=== PATIENT | female | born 1945 | race Caucasian/White ===

== ENCOUNTER → 2016-10-16 | Outpatient (CLI) | payer OTHER ==
[~2016-10-16] MED LIST: ASPEC81 PO; CLR10 PO; EFFSR150 PO; ESTER-C PO; HYOS1TAB PO; LEVO75TA5 PO; MULT-506 PO; OMEP40CA PO; OXYC-57 PO; PRAV20TA PO
[2016-10-17 06:29] LABS: ESTIMATED AVERAGE GLUCOSE 123 mg/dl; HA1C FLAG Normal (Normal)
== END | disposition home or self-care (01) ==
LOC: C.LABBFT 12:02
PROVIDERS: ATTEND Internal Medicine
DX: E11.9 Type 2 diabetes mellitus without complications (principal)

== ENCOUNTER → 2017-03-06 | Outpatient (CLI) | payer OTHER ==
[2017-03-06 12:32] LABS: BASO % 0.3 %; BASO ABS # 0.02 K/uL (0-0.2); COMPLETE YES; EOS % 2.6 %; HEMATOCRIT 38.3 % (37-47); IG% 0.3 %; LYMPH % 31.3 %; LYMPH ABS # 1.83 K/uL (1.2-3.4); MEAN CELL VOLUME 94.3 fL (80-100); MEAN CORPUSCULAR HEMOGLOBIN 31.3 pg (25-34); MEAN CORPUSCULAR HGB CONC 33.2 g/dl (32-36); MEAN PLATELET VOLUME 10.6 fL (7.4-10.4); MONO % 9.9 %; NEUT % 55.6 %; PLATELET COUNT 250 K/uL (130-400); RED BLOOD COUNT 4.06 M/uL (4.2-5.4); WHITE BLOOD COUNT 5.84 K/uL (4.8-10.8)
[2017-03-06 12:34] LABS: URINE APPEARANCE CLEAR (CLEAR); URINE BILIRUBIN NEG (NEG); URINE COLOR YELLOW; URINE EPITHELIAL CELL AUTO >30 /lpf (0-5); URINE NITRITE NEG (NEG); UROBILINOGEN NEG (NEG); ZZUR CULT IF INDIC CLEAN CATCH NO
[2017-03-06 12:41] LABS: MANUAL MICROSCOPIC REQUIRED? NO; REVIEW REQ? NO
[2017-03-06 13:05] LABS: ESTIMATED AVERAGE GLUCOSE 131 mg/dl; HA1C FLAG Normal (Normal)
[2017-03-06 13:09] LABS: ALT/SGPT 18 U/L (12-78); BLOOD UREA NITROGEN 11 mg/dl (7-18); BUN/CREATININE RATIO 13.8 (10-20); CALCIUM 9.1 mg/dl (8.5-10.1); CARBON DIOXIDE 26 mmol/L (21-32); CHLORIDE 106 mmol/L (98-107); CHOLESTEROL 165 mg/dl (0-200); CREATININE 0.81 mg/dl (0.60-1.20); GLUCOSE 100 mg/dl (70-99); POTASSIUM 4.3 mmol/L (3.5-5.1); SODIUM 140 mmol/L (136-145); TRIGLYCERIDES 84 mg/dl (0-150); VERY LOW DENSITY LIPOPROT CALC 17 mg/dl
[2017-03-06 13:20] LABS: RATIO 8.9 mcg/mg (0-30.0)
[2017-03-06 13:20] LABS: ALB/GLOB RATIO 1.1 (0.9-2); ALKALINE PHOSPHATASE 65 U/L (45-117); AST/SGOT 11 U/L (15-37); CHOLESTEROL/HDL RATIO 2.4; HDL CHOLESTEROL 69 mg/dl; LDL CHOLESTEROL CALCULATED 79 mg/dl; THYROID STIMULATING HORMONE 0.184 uIu/ml (0.300-4.500)
== END | disposition home or self-care (01) ==
LOC: C.LABBFT 11:03
PROVIDERS: ATTEND Internal Medicine
DX: E11.9 Type 2 diabetes mellitus without complications (principal); E78.00 Pure hypercholesterolemia, unspecified; E03.9 Hypothyroidism, unspecified; M85.80 Other specified disorders of bone density and structure, unspecified site

== ENCOUNTER → 2017-04-30 | Outpatient (CLI) | payer OTHER ==
[2017-04-30 18:05] LABS: THYROID STIMULATING HORMONE 0.148 uIu/ml (0.300-4.500)
== END | disposition home or self-care (01) ==
LOC: C.LABBFT 14:17
PROVIDERS: ATTEND Internal Medicine
DX: E03.9 Hypothyroidism, unspecified (principal)

== ENCOUNTER → 2017-06-18 | Outpatient (CLI) | payer OTHER ==
--- NOTE | 2017-06-18 14:35 | MAMMOGRAPHY REPORT ---
BILATERAL DIGITAL SCREENING MAMMOGRAM WITH CAD: 06/18/2017 CLINICAL HISTORY: Routine screening. Patient has no complaints. TECHNIQUE: Current study was also evaluated with a Computer Aided Detection (CAD) system. Bilateral CC and MLO views were obtained. COMPARISON: Comparison is made to exams dated: 06/16/2016 mammogram, 06/11/2015 mammogram, 06/08/2014 mammogram, 06/06/2013 mammogram, 06/04/2012 mammogram, and 05/30/2011 mammogram - [facility]. BREAST COMPOSITION: The tissue of both breasts is heterogeneously dense, which may obscure small mas ses. FINDINGS: No suspicious masses, calcifications, or areas of architectural distortion are noted in ei ther breast. There has been no significant interval change compared to prior exams. Scattered bilater al benign-appearing calcifications are not significantly changed. IMPRESSION: ACR BI-RADS CATEGORY 2: BENIGN There is no mammographic evidence of malignancy. A 1 year screening mammogram is recommended. The pa tient will receive written notification of the results. Approximately 10% of breast cancers are not detected with mammography. A negative mammographic report should not delay biopsy if a clinically suggestive mass is present. Trinity Morales M.D. /:06/18/2017 12:26:13 Screen Cutter And Trimmer: Roya Gordillo, [facility] letter sent: Normal 1/2 BI-RADS Code: ACR BI-RADS Category 2: Benign
== END | disposition home or self-care (01) ==
LOC: C.MAMM 10:43
PROVIDERS: ATTEND Obstetrics & Gynecology
DX: Z12.31 Encounter for screening mammogram for malignant neoplasm of breast (principal)

== ENCOUNTER → 2017-07-16 | Outpatient (CLI) | payer OTHER ==
[2017-07-16 17:55] LABS: URINE APPEARANCE CLEAR (CLEAR); URINE BILIRUBIN NEG (NEG); URINE COLOR YELLOW; URINE NITRITE NEG (NEG); URINE PH 7.5 (4.5-7.5); URINE SPECIFIC GRAVITY 1.018 (1.000-1.030); UROBILINOGEN NEG (NEG); ZZUR CULT IF INDIC CLEAN CATCH NO
[2017-07-16 17:58] LABS: MANUAL MICROSCOPIC REQUIRED? NO; REVIEW REQ? NO
[2017-07-16 18:32] LABS: ALT/SGPT 23 U/L (12-78); AST/SGOT 14 U/L (15-37); BLOOD UREA NITROGEN 15 mg/dl (7-18); BUN/CREATININE RATIO 19.5 (10-20); CALCIUM 9.3 mg/dl (8.5-10.1); CARBON DIOXIDE 26 mmol/L (21-32); CHLORIDE 104 mmol/L (98-107); CREATININE 0.75 mg/dl (0.60-1.20); GLUCOSE 93 mg/dl (70-99); POTASSIUM 3.8 mmol/L (3.5-5.1); SODIUM 139 mmol/L (136-145)
[2017-07-16 18:41] LABS: ALB/GLOB RATIO 1.1 (0.9-2); ALKALINE PHOSPHATASE 82 U/L (45-117); CHOLESTEROL 137 mg/dl (0-200); CHOLESTEROL/HDL RATIO 2.1; HDL CHOLESTEROL 66 mg/dl; LDL CHOLESTEROL CALCULATED 58 mg/dl; TRIGLYCERIDES 67 mg/dl (0-150); VERY LOW DENSITY LIPOPROT CALC 13 mg/dl
[2017-07-17 05:43] LABS: ESTIMATED AVERAGE GLUCOSE 128 mg/dl; HA1C FLAG Normal (Normal)
== END | disposition home or self-care (01) ==
LOC: C.LABBFT 12:36
PROVIDERS: ATTEND Internal Medicine
DX: E03.9 Hypothyroidism, unspecified (principal); E78.00 Pure hypercholesterolemia, unspecified; E11.9 Type 2 diabetes mellitus without complications; R39.9 Unspecified symptoms and signs involving the genitourinary system

== ENCOUNTER → 2017-12-16 | Outpatient (CLI) | payer OTHER ==
--- NOTE | 2017-12-16 15:14 | MAMMOGRAPHY REPORT ---
UNILATERAL LEFT DIGITAL DIAGNOSTIC MAMMOGRAM TOMOSYNTHESIS WITH CAD AND TARGETED LEFT ULTRASOUND: 11/29 CLINICAL HISTORY: The patient reports a palpable left breast lump with associated pain for a few beti hs. TECHNIQUE: Breast tomosynthesis in addition to standard 2D mammography was performed. Current study was also evaluated with a Computer Aided Detection (CAD) system. Left CC and MLO 2D and tomosynthesi s images were obtained. COMPARISON: Comparison is made to exams dated: 06/18/2017 mammogram, 06/11/2015 mammogram, 6 mammogram, 06/08/2014 mammogram, 06/06/2013 mammogram, and 06/04/2012 mammogram - [facility]. BREAST COMPOSITION: The tissue of the left breast is heterogeneously dense, which may obscure small masses. FINDINGS: A triangle marker sesay the site of the palpable lump in the left upper outer anterior anai st. There are no suspicious masses or other suspicious mammographic abnormalities noted in this glen on. The remainder of the left breast is stable compared to prior exams, without suspicious masses, c alcifications, or areas of architectural distortion noted. Scattered benign-appearing calcifications are not significantly changed. Targeted ultrasound was performed of the area of the palpable lump pointed out by the patient in the left 1 to 2:00 periareolar region. Sonographically normal tissue is seen in this region, without abdirahman dence of a mass or other suspicious sonographic abnormality. IMPRESSION: ACR BI-RADS CATEGORY 2: BENIGN, TARGETED ULTRASOUND ACR BI-RADS CATEGORY 2: BENIGN No suspicious mammographic or sonographic abnormality at the site of the palpable left breast lump po inted out by the patient. There is no mammographic or targeted sonographic evidence of malignancy. Recommend clinical follow-up for the left breast lump, and recommend routine bilateral screening mamm ograms which are due May 2018. The patient has been verbally notified of the results. Approximately 10% of breast cancers are not detected with mammography. A negative mammographic report should not delay biopsy if a clinically suggestive mass is present. Trinity Morales M.D. ah/:12/16/2017 13:52:31 Track Laying Supervisor: Roya BRAND(R)(M), [facility] letter sent: Normal 1/2 BI-RADS Code: ACR BI-RADS Category 2: Benign Ultrasound BI-RADS: ACR BI-RADS Category 2: Benign
== END | disposition home or self-care (01) ==
LOC: C.MAMM 13:23
PROVIDERS: ATTEND Obstetrics & Gynecology
DX: N63.20 Unspecified lump in the left breast, unspecified quadrant (principal)

== ENCOUNTER → 2018-03-23 | Outpatient (CLI) | payer OTHER | END | disposition home or self-care (01) | LOC: C.LABBFT 15:33 | PROVIDERS: ATTEND Internal Medicine | DX: E03.9 Hypothyroidism, unspecified (principal) ==

== ENCOUNTER 2024-01-18 12:22 | Observation (INO) ==
[2024-01-18 13:11] LABS: iSTAT Creatinine 0.8 mg/dl (0.6-1.3); iSTAT Hemoglobin 11.2 g/dl (12.0-16.0); iSTAT Ionized Calcium 1.25 mmol/l (1.12-1.32); iSTAT Potassium 4.2 mmol/L (3.3-5.0)
[2024-01-18] MEDS: OPTIRAY 320 100ml IV ONE (13:11)
--- NOTE | 2024-01-18 13:52 | CT Scan Report ---
CT OF THE CHEST WITH IV CONTRAST CLINICAL HISTORY: left rib pain, fall COMPARISON STUDY: Chest radiograph February 25, 2023. TECHNIQUE: Following IV administration of 94 mL of Optiray, helical axial images of the chest were o btained. Sagittal and coronal reconstructions were viewed as well as maximal intensity projections o n an independent 3-D workstation. Automated exposure control was utilized for the study. A dose low ering technique was utilized adhering to the principles of ALARA. CT DOSE: 1148.11 mGy.cm FINDINGS: There are subtle nondisplaced fractures of the anterior left sixth through ninth ribs. The se are age indeterminate. No pneumothorax or pleural effusion is present. There is no pulmonary contu nayla. There is a segmental pulmonary embolus within the anterior segment of the right upper lobe on i mage 90 of 205. No additional pulmonary emboli are identified. There is no evidence for traumatic inj ury to the thoracic aorta. Size of the heart is normal. There is no pericardial effusion. There is no thoracic lymphadenopathy. No acute thoracic spine fractures are present. Abdomen and pelvis CT will be reported separately. IMPRESSION: 1. Age indeterminate nondisplaced fractures of the anterior left sixth through ninth ribs. No pneumot horax. 2. Segmental pulmonary embolus within the anterior segment of the right upper lobe. No additional pul monary emboli identified. ACT 112: Negative or not required by law. Electronically signed by: Justin Villareal M.D. 01/18/2024 1:50 PM
--- NOTE | 2024-01-18 13:53 | CT Scan Report ---
ABDOMEN AND PELVIS CT WITH IV CONTRAST CT DOSE: HISTORY: luq pain, fall TECHNIQUE: Multiaxial CT images of the abdomen and pelvis were performed following the use of intrave nous contrast. A dose lowering technique was utilized adhering to the principles of ALARA. COMPARISON STUDY: Pelvis CT 02/25/2023. FINDINGS: The lung bases will be reported on the same day chest CT. No pneumoperitoneum. No pneumatos is. Mild irregularity of the left anterior sixth through ninth ribs consistent with age indeterminate fractures. These are nondisplaced. The liver, gallbladder, pancreas, spleen, and adrenal glands are unremarkable. No hydronephrosis. A subcentimeter hypodense lesion within the left kidney is technical ly too small to characterize but favors a cyst. The right kidney enhances normally. Calcified plaque within the normal caliber abdominal aorta. No retroperitoneal hematoma or lymphadenopathy. No pelvic lymphadenopathy or pelvic free fluid. The bladder is not well-distended but appears unremarkable. The uterus and bilateral adnexa are within normal limits. Tiny fat-containing bilateral inguinal hernias . The right inguinal hernia contains a knuckle small bowel. No bowel wall thickening or obstruction. Moderate fecal retention. Evidence for prior right hemicolectomy. IMPRESSION: 1. Age-indeterminate nondisplaced left anterior sixth through ninth rib fractures. 2. No bowel wall thickening or obstruction. 3. Postoperative changes consistent with a prior right hemicolectomy. 4. The lung bases will be reported on the same day chest CT. 5. Additional findings as described above. ACT 112: Negative or not required by law. Electronically signed by: Marky Tong M.D. 01/18/2024 1:52 PM
[2024-01-18 14:43] LABS: Basophils # (auto) 0.02 K/uL (0.00-0.20); Basophils % (auto) 0.3 %; Eosinophils # (auto) 0.13 K/uL (0.00-0.50); Eosinophils % (auto) 2.2 %; Hematocrit (blood only) 35.7 % (37.0-47.0); Hemoglobin 11.6 g/dl (12.0-16.0); Immature Granulocytes # (auto) 0.02 K/uL (0.01-0.20); Immature Granulocytes % (auto) 0.3 %; Lymphocytes # (auto) 1.72 K/uL (1.20-3.40); Mean Corpuscular Hemoglobin 30.4 pg (25.0-34.0); Mean Corpuscular Hgb Conc 32.5 g/dL (32.0-36.0); Mean Corpuscular Volume 93.5 fL (80.0-100.0); Mean Platelet Volume 10.9 fL (9.4-12.4); Monocytes # (auto) 0.59 K/uL (0.11-0.59); Monocytes % (auto) 9.9 %; Neutrophils # (auto) 3.46 K/uL (1.40-6.50); Neutrophils % (auto) 58.3 %; Platelet Count 268 K/uL (130-400); RDW Coefficient of Variation 15.8 % (11.5-14.5); RDW Standard Deviation 53.7 fL (36.4-46.3); Red Blood Count 3.82 M/uL (4.20-5.40); White Blood Count 5.94 K/ul (4.8-10.8)
[2024-01-18 14:45] LABS: Alanine Aminotransferase 13 U/L (7-52); Albumin Globulin Ratio 1.5 (0.9-2); Albumin Level 4.1 gm/dl (3.4-5.0); Alkaline Phosphatase 58 U/L (34-104); Anion Gap 7 (3-11); Aspartate Aminotransferase 12 U/L (13-39); BUN Creatinine Ratio 22.1 (10-20); Bilirubin,Total 0.5 mg/dl (0.2-1.0); Blood Urea Nitrogen 19 mg/dl (6-23); Calcium 9.8 mg/dl (8.6-10.3); Carbon Dioxide 27 mmol/L (21-32); Chloride 106 mmol/L (98-107); Creatinine Clr Calc Pharmacy 47.7 ml/min; Est GFR (African American) 74.5 ml/min; Est GFR (Non-African American) 64.3 ml/min; Globulin 2.8 gm/dl (2.5-4.0); Glucose 94 mg/dl (70-99(Fasting)); Potassium 4.2 mmol/L (3.5-5.1); Sodium 140 mmol/L (136-145); Total Protein 6.9 gm/dl (6.0-8.3)
[2024-01-18 14:52] LABS: Troponin I High Sensitivity < 2.3 pg/ml (0-14)
--- NOTE | 2024-01-18 15:01 | Emergency Department Note ---
ED Provider Note History of Present Illness Chief Complaint: Fall Stated Complaint: FALL SIDE BY RIBS Time Seen by Provider: 01/18/24 12:34 Source: patient Mode of arrival: ambulatory Limitations: no limitations This patient is a 78-year-old female who presents to the emergency department for evaluation of a fall and left-sided rib pain. Patient reports that she slipped on her carpet yesterday and fell, striking the left side ribs on an end table. She denies striking her head. She denies any other injuries. She reports pain in the left ribs especially with cough or deep breath. Denies difficulty breathing. She has been hugging a pillow to her ribs which helps. She does not take any anticoagulants. Home Medications Medication Instructions Recorded Confirmed Type loratadine 10 mg tablet 10 mg PO QAM 03/11/19 01/18/24 History famotidine 20 mg tablet 20 mg PO QAM 06/13/20 01/18/24 History wheat dextrin 3 gram/3.5 gram oral 1 packet PO BID 10/23/20 01/18/24 History powder packet cholecalciferol (vitamin D3) 50 50 mcg PO DAILY #30 caps 12/16/22 01/18/24 Rx mcg (2,000 unit) capsule mecobalamin (vitamin B12) 1,000 1,000 mcg PO DAILY #30 tabs 12/16/22 01/18/24 Rx mcg chewable tablet alendronate 35 mg tablet 35 mg PO WK #12 tabs 06/18/23 01/18/24 Rx levothyroxine 50 mcg tablet 50 mcg PO DAILY #90 tabs 09/29/23 01/18/24 Rx magnesium 250 mg tablet 250 mg PO DAILY 09/29/23 01/18/24 History venlafaxine 225 mg tablet,extended 225 mg PO DAILY #30 tabs 10/20/23 01/18/24 Rx release 24 hr metoprolol succinate 50 mg 50 mg PO DAILY #30 tabs 10/26/23 01/18/24 Rx tablet,extended release 24 hr metformin 500 mg tablet,extended 500 mg PO BID #180 tabs 11/17/23 01/18/24 Rx release 24 hr atorvastatin 40 mg tablet 40 mg PO HS #90 tabs 11/30/23 01/18/24 Rx Allergies Allergy/AdvReac Type Severity Reaction Status Date / Time SEASONAL Allergy Mild Uncoded 11/30/23 13:21 Past Med/Surg History Problem List (Updated 01/18/24 @ 20:24 by Jacquelyn Giang PA-C) Multiple fractures of ribs (Acute) Pulmonary embolism (Acute) Multiple rib fractures Pulmonary emboli SVT (supraventricular tachycardia) Sensorineural hearing loss (SNHL) of both ears HTN (hypertension) Encounter for interrogation of cardiac recorder Balance disorder Memory changes H/O traumatic brain injury Coronary artery calcification seen on CAT scan Syncope Decreased hearing Post concussion syndrome History of colon polyps Urinary incontinence (Acute) Tubulovillous adenoma of colon (Acute) Tubular adenoma of colon (Acute) Stuttering (Acute) Plantar fasciitis (Acute) Osteopenia (Chronic) Mitral valve prolapse syndrome (Acute) Microscopic hematuria (Acute) Irritable bowel syndrome (Chronic) Hypothyroidism (Chronic) Hypercholesterolemia (Chronic) Gastroesophageal reflux disease (Chronic) Diabetes mellitus type II, controlled (Chronic) NIDDM Depression (Acute) Anxiety (Chronic) Allergic rhinitis (Acute) Medical History Osteoarthritis Encounter for annual routine gynecological examination Lyme disease 3 yrs ago History of burning on urination Disorder of bone Anserine bursitis Surgical History History of colonoscopy History of tooth extraction History of appendectomy History of cataract surgery bilat History of tubal ligation History of breast biopsy left History of partial colectomy Family History Mother Breast cancer Skin cancer Pancreatic neoplasm Father Lung cancer Myocardial infarction Brother Myocardial infarction Asbestosis Esophageal cancer Sister Coronary heart disease Congenital heart disease Breast cancer Alzheimer disease Brother Intracranial hemorrhage Heart disease Denies family history of Ovarian cancer Prostate cancer Colorectal cancer Social History Smoking Status: Never smoker Second Hand Exposure: No; Do You Dip or Chew Tobacco: No; Hx Alcohol Use: Yes Alcohol type: wine Hx Substance Use: No Preferred Language: Serbian Communication Ability: Effective Visual Impairment: No Limitations Hearing Ability: Normal Electrical Fitter Required: No Beliefs That Will Affect Care: None marital status: Current Living Situation: Spouse current occupational status: retired Feels Safe at Home: Yes Safety Concerns: Feels Safe At This Time Childhood Exposure to Second-Hand Smoke: Yes Diet: regular caffeine: No Dental Care, Regularly: Yes Physical Activity Frequency: 3-4 Times per Week Seatbelt Use: always Sunscreen Use: Yes Assistive Devices: Cane, Denture - Upper, Denture - Lower and Glasses Physical Exam Vital Signs Vital Signs - 24 hr 01/18/24 12:26 Temperature 36.3 C L Temperature Source Temporal Artery Scan Pulse Rate 77 Pulse Rhythm Regular Pulse Strength Normal Respiratory Rate 16 Respiratory Effort / Characteristics Non-Labored Respiratory Depth Normal Respiratory Pattern Regular Blood Pressure 128/78 Blood Pressure Mean 94 Blood Pressure Position Sitting Pulse Oximetry 96 Oxygen Delivery Method Room Air Sepsis Recent Fever Within 48 Hours No Sepsis New/Unexplained Change in Mental Status N/A Sepsis Action Taken by Nursing No Action Required VITALS: Vitals are noted on the nurse's note and reviewed by myself. GENERAL: This is a 78-year-old female, in no acute distress, nondiaphoretic, well-developed well-nourished. SKIN: Small area of ecchymosis to the left anterior ribs. HEAD: Normocephalic atraumatic. EYES: Pupils equal round and reactive to light and accommodation. HEART: Regular rate and rhythm without murmurs gallops or rubs. LUNGS: Clear to auscultation bilaterally without wheezes, rales or rhonchi. No retractions or accessory muscle use. ABDOMEN: Positive bowel sounds x 4. Soft, mild tenderness in the left upper quadrant. NEURO: Patient was alert and oriented to person place and time. Course Administered Medications Acetaminophen (Acetaminophen 500 Mg Tab) 1,000 mg PO TID [facility] Stop: 02/17/24 16:34 Last Admin: 01/18/24 17:43 Dose: 1,000 mg Documented By: RON Heparin Sodium/Dextrose (Heparin Sodium/Dextrose) 25,000 units in 500 mls @ 20 mls/hr IV .Q24H [facility]; Protocol Stop: 02/17/24 16:44 Last Titration: 01/18/24 18:50 Dose: 1,000 units/hr, 20 mls/hr Documented By: RAE Co-signed By: RON Admin: 01/18/24 17:43 Dose: 1,000 units/hr, 20 mls/hr Documented By: RON Co-signed By: ALTAF Discontinued Medications Heparin Sodium (Porcine) (Heparin Sod (Porcine) 1000 Unit/Ml) 5,000 units IV NOW ONE Stop: 01/18/24 16:35 Last Admin: 01/18/24 17:43 Dose: 5,000 units Documented By: RON Co-signed By: ALTAF Ioversol (Optiray 320 100ml) 94 ml IV ONCE ONE Stop: 01/18/24 13:11 Last Admin: 01/18/24 13:11 Dose: 94 ml Documented By: DAMIEN Medical Decision Making Differential Diagnosis Differential diagnosis includes rib fracture, contusion, hemothorax, pneumothorax, intra-abdominal injury, among others. Laboratory Data Attestation: I reviewed the patient's lab results. 01/18/24 12:54 01/18/24 12:54 Lab Results 01/18/24 01/18/24 Range/Units 12:54 12:59 WBC 5.94 (4.8-10.8) K/ul RBC 3.82 L (4.20-5.40) M/uL Hgb 11.6 L (12.0-16.0) g/dl POC Hgb 11.2 L (12.0-16.0) g/dl Hct 35.7 L (37.0-47.0) % POC Hct 33 L (37-47) % MCV 93.5 (80.0-100.0) fL MCH 30.4 (25.0-34.0) pg MCHC 32.5 (32.0-36.0) g/dL RDW Std Deviation 53.7 H (36.4-46.3) fL RDW Coeff of Patricio 15.8 H (11.5-14.5) % Plt Count 268 (130-400) K/uL MPV 10.9 (9.4-12.4) fL Immature Gran % (Auto) 0.3 % Neut % (Auto) 58.3 % Lymph % (Auto) 29.0 % Clay % (Auto) 9.9 % Eos % (Auto) 2.2 % Baso % (Auto) 0.3 % Neut # (Auto) 3.46 (1.40-6.50) K/uL Lymph # (Auto) 1.72 (1.20-3.40) K/uL Clay # (Auto) 0.59 (0.11-0.59) K/uL Eos # (Auto) 0.13 (0.00-0.50) K/uL Baso # (Auto) 0.02 (0.00-0.20) K/uL Immature Gran # (Auto) 0.02 (0.01-0.20) K/uL PT 10.3 (9.0-12.0) Seconds INR 0.9 (0.9-1.1) APTT 24 (21-31) Seconds PTT Ratio 0.9 POC Sodium 141 (135-144) mmol/L Sodium 140 (136-145) mmol/L POC Potassium 4.2 (3.3-5.0) mmol/L Potassium 4.2 (3.5-5.1) mmol/L POC Chloride 104 (101-112) mmol/L Chloride 106 (98-107) mmol/L Carbon Dioxide 27 (21-32) mmol/L POC Total CO2 25 (24-31) mmol/L Anion Gap 7 (3-11) POC Anion Gap 17.0 (16-25) mmol/L POC BUN 19 H (7-18) mg/dl BUN 19 (6-23) mg/dl Creatinine 0.86 (0.6-1.2) mg/dl POC Creatinine 0.8 (0.6-1.3) mg/dl Est Cr Clr Drug Dosing 47.7 ml/min Est GFR ( Amer) 74.5 ml/min Est GFR (Non-Af Amer) 64.3 ml/min BUN/Creatinine Ratio 22.1 H (10-20) Glucose 94 (70-99(Fasting)) mg/dl POC Glucose (other) 96 (70-99) mg/dl Calcium 9.8 (8.6-10.3) mg/dl POC Ioniz Calcium Faiza 1.25 (1.12-1.32) mmol/l Total Bilirubin 0.5 (0.2-1.0) mg/dl AST 12 L (13-39) U/L ALT 13 (7-52) U/L Alkaline Phosphatase 58 (34-104) U/L Troponin I High Sens < 2.3 (0-14) pg/ml Total Protein 6.9 (6.0-8.3) gm/dl Albumin 4.1 (3.4-5.0) gm/dl Globulin 2.8 (2.5-4.0) gm/dl Albumin/Globulin Ratio 1.5 (0.9-2) Imaging Data Attestation: I personally reviewed and interpreted this imaging study as follows: Radiologist's Impression: Abdomen/Pelvis CT 01/18/24 12:[address] WITH IV CONTRAST CT DOSE: HISTORY: luq pain, fall TECHNIQUE: Multiaxial CT images of the abdomen and pelvis were performed following the use of intravenous contrast. A dose lowering technique was utilized adhering to the principles of ALARA. COMPARISON STUDY: Pelvis CT 02/25/2023. FINDINGS: The lung bases will be reported on the same day chest CT. No pneumoperitoneum. No pneumatosis. Mild irregularity of the left anterior sixth through ninth ribs consistent with age indeterminate fractures. These are nondisplaced. The liver, gallbladder, pancreas, spleen, and adrenal glands are unremarkable. No hydronephrosis. A subcentimeter hypodense lesion within the left kidney is technically too small to characterize but favors a cyst. The right kidney enhances normally. Calcified plaque within the normal caliber abdominal aorta. No retroperitoneal hematoma or lymphadenopathy. No pelvic lymphadenopathy or pelvic free fluid. The bladder is not well-distended but appears unremarkable. The uterus and bilateral adnexa are within normal limits. Tiny fat-containing bilateral inguinal hernias. The right inguinal hernia contains a knuckle small bowel. No bowel wall thickening or obstruction. Moderate fecal retention. Evidence for prior right hemicolectomy. IMPRESSION: 1. Age-indeterminate nondisplaced left anterior sixth through ninth rib fractures. 2. No bowel wall thickening or obstruction. 3. Postoperative changes consistent with a prior right hemicolectomy. 4. The lung bases will be reported on the same day chest CT. 5. Additional findings as described above. ACT 112: Negative or not required by law. Electronically signed by: Marky Tong M.D. 01/18/2024 1:[address] 01/18/24 12:45 CT OF THE CHEST WITH IV CONTRAST CLINICAL HISTORY: left rib pain, fall COMPARISON STUDY: Chest radiograph February 25, 2023. TECHNIQUE: Following IV administration of 94 mL of Optiray, helical axial images of the chest were obtained. Sagittal and coronal reconstructions were viewed as well as maximal intensity projections on an independent 3-D workstation. Automated exposure control was utilized for the study. A dose lowering technique was utilized adhering to the principles of ALARA. CT DOSE: 1148.11 mGy.cm FINDINGS: There are subtle nondisplaced fractures of the anterior left sixth through ninth ribs. These are age indeterminate. No pneumothorax or pleural effusion is present. There is no pulmonary contusion. There is a segmental pulmonary embolus within the anterior segment of the right upper lobe on image 90 of 205. No additional pulmonary emboli are identified. There is no evidence for traumatic injury to the thoracic aorta. Size of the heart is normal. There is no pericardial effusion. There is no thoracic lymphadenopathy. No acute thoracic spine fractures are present. Abdomen and pelvis CT will be reported separately. IMPRESSION: 1. Age indeterminate nondisplaced fractures of the anterior left sixth through ninth ribs. No pneumothorax. 2. Segmental pulmonary embolus within the anterior segment of the right upper lobe. No additional pulmonary emboli identified. ACT 112: Negative or not required by law. Electronically signed by: Justin Villareal M.D. 01/18/2024 1:50 PM Venous Doppler Study 01/18/24 14:49 BILATERAL LOWER EXTREMITY VENOUS DOPPLER CLINICAL HISTORY: PE ?DVT COMPARISON STUDY: No previous studies for comparison. TECHNIQUE: Sonography of the deep venous system of the bilateral lower extremities was performed. Compression and augmentation were evaluated. FINDINGS: The bilateral common femoral, superficial femoral and popliteal veins were compressible. Augmentation was normal. Flow was shown within the deep calf vessels. IMPRESSION: No evidence of deep venous thrombus within the bilateral lower extremities. ACT 112: Negative or not required by law. Electronically signed by: Justin Villareal M.D. 01/18/2024 3:58 PM MDM Narrative This patient is a 78-year-old female who presents to the emergency department for evaluation of an injury to her left ribs. She does have some tenderness to palpation of the upper abdomen, therefore CT of the chest and abdomen/pelvis were performed. CTs revealed for rib fractures as well as an incidental PE. Patient has no history of PE, not currently on anticoagulants. She will need started on anticoagulants, however given this recent trauma I feel this would be best done under observation. Case was discussed with the [facility] service, who agreed to evaluate patient for further care. Impression Pulmonary embolism, Multiple fractures of ribs Discharge Plan Visit Data Chief Complaint: Fall Stated Complaint: FALL SIDE BY RIBS ED Provider: Ahsan Renteria ED Midlevel Provider: Jacquelyn Giang Discharge Problem: Pulmonary embolism, Multiple fractures of ribs Patient Disposition: Admitted As Inpatient Discharge Instructions Interventions: ED Discharge Assessment Last Done: 01/18/24 15:40
[2024-01-18 15:06] LABS: INR 0.9 (0.9-1.1); Partial Thromboplastin Ratio 0.9; Partial Thromboplastin Time 24 Seconds (21-31); Prothrombin Time 10.3 Seconds (9.0-12.0)
--- NOTE | 2024-01-18 16:00 | Ultrasound Report ---
BILATERAL LOWER EXTREMITY VENOUS DOPPLER CLINICAL HISTORY: PE ?DVT COMPARISON STUDY: No previous studies for comparison. TECHNIQUE: Sonography of the deep venous system of the bilateral lower extremities was performed. Co mpression and augmentation were evaluated. FINDINGS: The bilateral common femoral, superficial femoral and popliteal veins were compressible. A ugmentation was normal. Flow was shown within the deep calf vessels. IMPRESSION: No evidence of deep venous thrombus within the bilateral lower extremities. ACT 112: Negative or not required by law. Electronically signed by: Justin Villareal M.D. 01/18/2024 3:58 PM
--- NOTE | 2024-01-18 16:18 | History & Physical Report ---
Date of Service January 18, 2024 Assessment & Plan (1) Pulmonary emboli: Plan: IV heparin in setting of trauma with rib fractures US venous doppler to ensure no DVT contributing as likely can just have 3 months of treatment if no extensive DVT (2) Multiple rib fractures: Plan: Incentive spirometer q1hwa Acetaminophen 1g PO TID Oxycodone 2.5-5mg PO q4h PRN for breakthrough pain (3) Diabetes mellitus type II, controlled: Plan: Hemoglobin A1C 6.2 in May, repeat with AM labs Hold metformin due to contrast Novolog: --Goal BSG Range: Low 110 mg/dL, High 140 mg/dL --Correction Factor: 50 mg/dL/unit No carb ratio --BSGs ACHS if eating, q6h if npo (4) Depression: Plan: Continue venlafaxine (5) Hypothyroidism: Plan: TSH 0.188 in August - reduced from 75 -> 50 mcg PO following this result, co ntinue 50 mcg Repeat 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 She slipped and fell onto her left side onto a table and has had left sided chest pain since. She notes having osteopenia but is on treatment for this. No other injuries and she did not hit her head. No chest pain, shortness of breath or dizziness prior to falling. She denies any other injuries following the fall other than her left sided chest pain. Pulmonary emboli was found on CT imaging. She denies a history of DVT or PE. No calf pain. No history of significant bleeds. Allergies Allergy/AdvReac Type Severity Reaction Status Date / Time SEASONAL Allergy Mild Uncoded 11/30/23 13:21 Home Medications Medication Instructions Recorded Confirmed Type loratadine 10 mg tablet 10 mg PO QAM 03/11/19 01/18/24 History famotidine 20 mg tablet 20 mg PO QAM 06/13/20 01/18/24 History wheat dextrin 3 gram/3.5 gram oral 1 packet PO BID 10/23/20 01/18/24 History powder packet cholecalciferol (vitamin D3) 50 50 mcg PO DAILY #30 caps 12/16/22 01/18/24 Rx mcg (2,000 unit) capsule mecobalamin (vitamin B12) 1,000 1,000 mcg PO DAILY #30 tabs 12/16/22 01/18/24 Rx mcg chewable tablet alendronate 35 mg tablet 35 mg PO WK #12 tabs 06/18/23 01/18/24 Rx levothyroxine 50 mcg tablet 50 mcg PO DAILY #90 tabs 09/29/23 01/18/24 Rx magnesium 250 mg tablet 250 mg PO DAILY 09/29/23 01/18/24 History venlafaxine 225 mg tablet,extended 225 mg PO DAILY #30 tabs 10/20/23 01/18/24 Rx release 24 hr metoprolol succinate 50 mg 50 mg PO DAILY #30 tabs 10/26/23 01/18/24 Rx tablet,extended release 24 hr metformin 500 mg tablet,extended 500 mg PO BID #180 tabs 11/17/23 01/18/24 Rx release 24 hr atorvastatin 40 mg tablet 40 mg PO HS #90 tabs 11/30/23 01/18/24 Rx Past Med/Surg History Problem List (Updated 01/18/24 @ 22:30 by Tiuts Major LPN) Multiple fractures of ribs (Acute ~01/18/24) Age indeterminate nondisplaced fractures of the anterior left sixth through ninth ribs from a fall Pulmonary embolism (Acute) Multiple rib fractures (~01/18/24) Age indeterminate nondisplaced fractures of the anterior left sixth through ninth ribs from a fall Pulmonary emboli SVT (supraventricular tachycardia) Sensorineural hearing loss (SNHL) of both ears HTN (hypertension) Encounter for interrogation of cardiac recorder Balance disorder Memory changes H/O traumatic brain injury Coronary artery calcification seen on CAT scan Syncope Decreased hearing Post concussion syndrome History of colon polyps Urinary incontinence (Acute) Tubulovillous adenoma of colon (Acute) Tubular adenoma of colon (Acute) Stuttering (Acute) Plantar fasciitis (Acute) Osteopenia (Chronic) Mitral valve prolapse syndrome (Acute) Microscopic hematuria (Acute) Irritable bowel syndrome (Chronic) Hypothyroidism (Chronic) Hypercholesterolemia (Chronic) Gastroesophageal reflux disease (Chronic) Diabetes mellitus type II, controlled (Chronic) NIDDM Depression (Acute) Anxiety (Chronic) Allergic rhinitis (Acute) Medical History Osteoarthritis Encounter for annual routine gynecological examination Lyme disease 3 yrs ago History of burning on urination Disorder of bone Anserine bursitis Surgical History History of colonoscopy History of tooth extraction History of appendectomy History of cataract surgery bilat History of tubal ligation History of breast biopsy left History of partial colectomy Family History Mother Breast cancer Skin cancer Pancreatic neoplasm Father Lung cancer Myocardial infarction Brother Myocardial infarction Asbestosis Esophageal cancer Sister Coronary heart disease Congenital heart disease Breast cancer Alzheimer disease Brother Intracranial hemorrhage Heart disease Denies family history of Ovarian cancer Prostate cancer Colorectal cancer Social History Smoking Status: Never smoker Second Hand Exposure: No; Do You Dip or Chew Tobacco: No; Hx Alcohol Use: Yes Alcohol type: wine Hx Substance Use: No Preferred Language: Kenyan Communication Ability: Effective Visual Impairment: No Limitations Hearing Ability: Normal 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 Beliefs That Will Affect Care: None marital status: Current Living Situation: Spouse current occupational status: retired Feels Safe at Home: Yes Safety Concerns: Feels Safe At This Time Childhood Exposure to Second-Hand Smoke: Yes Diet: regular caffeine: No Dental Care, Regularly: Yes Physical Activity Frequency: 3-4 Times per Week Seatbelt Use: always Sunscreen Use: Yes Assistive Devices: Cane, Denture - Upper, Denture - Lower and Glasses Review of Systems Review of Systems: All systems reviewed & are unremarkable except as noted in HPI & below Physical Exam Constitutional: WD/WN, vitals as above Eyes: PERRL, conjunctivae normal, anicteric sclerae Respiratory: normal respiratory effort, lungs clear to auscultation Cardiovascular: RRR, no murmur, no edema Chest (Breasts): Additional Comments: pain on palpation over left lower chest Gastrointestinal (Abdomen): normal bowel sounds, soft, nontender, no hepatosplenomegaly Musculoskeletal: no cyanosis or clubbing, extremities motor strength 5/5 Skin: no rashes, warm and dry Neurologic: moves all extremities and awake; not confused Psychiatric: A+Ox3, euthymic affect Results & Data Results & Data Vital Signs (Past 12 Hours) Vital Signs Temp Pulse Resp BP Pulse Ox O2 Del Method 01/18/24 15:40 36.4 C L 77 16 128/78 96 Room Air 01/18/24 12:26 36.3 C L 77 16 128/78 96 Room Air Laboratory Results Abnormal lab results 01/18/24 01/18/24 Range/Units 12:54 12:59 RBC 3.82 L (4.20-5.40) M/uL Hgb 11.6 L (12.0-16.0) g/dl POC Hgb 11.2 L (12.0-16.0) g/dl Hct 35.7 L (37.0-47.0) % POC Hct 33 L (37-47) % RDW Std Deviation 53.7 H (36.4-46.3) fL RDW Coeff of Patricio 15.8 H (11.5-14.5) % POC BUN 19 H (7-18) mg/dl BUN/Creatinine Ratio 22.1 H (10-20) AST 12 L (13-39) U/L Diagnostic Findings CT OF THE CHEST WITH IV CONTRAST CLINICAL HISTORY: left rib pain, fall COMPARISON STUDY: Chest radiograph February 25, 2023. TECHNIQUE: Following IV administration of 94 mL of Optiray, helical axial images of the chest were obtained. Sagittal and coronal reconstructions were viewed as well as maximal intensity projections on an independent 3-D workstation. Automated exposure control was utilized for the study. A dose lowering technique was utilized adhering to the principles of ALARA. CT DOSE: 1148.11 mGy.cm FINDINGS: There are subtle nondisplaced fractures of the anterior left sixth through ninth ribs. These are age indeterminate. No pneumothorax or pleural effusion is present. There is no pulmonary contusion. There is a segmental pulmonary embolus within the anterior segment of the right upper lobe on image 90 of 205. No additional pulmonary emboli are identified. There is no evidence for traumatic injury to the thoracic aorta. Size of the heart is normal. There is no pericardial effusion. There is no thoracic lymphadenopathy. No acute thoracic spine fractures are present. Abdomen and pelvis CT will be reported separately. IMPRESSION: 1. Age indeterminate nondisplaced fractures of the anterior left sixth through ninth ribs. No pneumothorax. 2. Segmental pulmonary embolus within the anterior segment of the right upper lobe. No additional pulmonary emboli identified. ABDOMEN AND PELVIS CT WITH IV CONTRAST CT DOSE: HISTORY: luq pain, fall TECHNIQUE: Multiaxial CT images of the abdomen and pelvis were performed following the use of intravenous contrast. A dose lowering technique was utilized adhering to the principles of ALARA. COMPARISON STUDY: Pelvis CT 02/25/2023. FINDINGS: The lung bases will be reported on the same day chest CT. No pneumoperitoneum. No pneumatosis. Mild irregularity of the left anterior sixth through ninth ribs consistent with age indeterminate fractures. These are nondisplaced. The liver, gallbladder, pancreas, spleen, and adrenal glands are unremarkable. No hydronephrosis. A subcentimeter hypodense lesion within the left kidney is technically too small to characterize but favors a cyst. The right kidney enhances normally. Calcified plaque within the normal caliber abdominal aorta. No retroperitoneal hematoma or lymphadenopathy. No pelvic lymphadenopathy or pelvic free fluid. The bladder is not well-distended but appears unremarkable. The uterus and bilateral adnexa are within normal limits. Tiny fat-containing bilateral inguinal hernias. The right inguinal hernia contains a knuckle small bowel. No bowel wall thickening or obstruction. Moderate fecal retention. Evidence for prior right hemicolectomy. IMPRESSION: 1. Age-indeterminate nondisplaced left anterior sixth through ninth rib fractures. 2. No bowel wall thickening or obstruction. 3. Postoperative changes consistent with a prior right hemicolectomy. 4. The lung bases will be reported on the same day chest CT. 5. Additional findings as described above. Medications Administered ER Medications Given: None ECG Rate (beats per minute): 73 Rhythm: normal sinus Findings: no acute ischemic change Comparison ECG Date: from (March 27, 2023) Change: no significant change Code Status & VTE Plan Code Status Full VTE Prophylaxis Plan VTE Prophylaxis will be ordered: Yes PG Care Time/CCT Total # of Minutes Spent Total Time Spent with Patient: Total time spent is greater than 50% in coordination of care (as documented) at patient's floor/unit and/or counseling patient: Coding Level of Care Code 62289 INT INP/OBS CARE 2/55MIN Diagnoses Pulmonary emboli I26.99 Multiple rib fractures S22.49XA Controlled type 2 diabetes mellitus without complication, without long-term current use of insulin E11.9 Diabetes mellitus complication status: without complication Diabetes mellitus shelter insulin use: without shelter use Depression, unspecified depression type F32.A Depression Type: unspecified Acquired hypothyroidism E03.9 Hypothyroidism type: acquired (3) Diabetes mellitus type II, controlled Diabetes mellitus complication status: without complication Diabetes mellitus terminal make up operator insulin use: without terminal make up operator use Qualified Code(s): E11.9 - Type 2 diabetes mellitus without complications (4) Depression Depression Type: unspecified Qualified Code(s): F32.A - Depression, unspecified (5) Hypothyroidism Hypothyroidism type: acquired Qualified Code(s): E03.9 - Hypothyroidism, unspecified
[2024-01-18] MEDS ORDERED: Heparin IV Adult Wt-Based Standard w/ INITIAL Bolus Protocol IV SCH (16:29)
[2024-01-18] MEDS ORDERED: CARBOHYDRATES FOR HYPOGLYCEMIA PO PRN (16:31)
[2024-01-18] MEDS ORDERED: GLUCOSE 10 TAB/TUBE PO PRN (16:31)
[2024-01-18] MEDS ORDERED: GLUCAGON FOR INJ 1 MG VIAL SQ PRN (16:31)
[2024-01-18] MEDS ORDERED: DEXTROSE 50% 50 ML SYRINGE IV PRN (16:31)
[2024-01-18] MEDS ORDERED: GLUCOSE 40% GEL 15 GM TUBE PO PRN (16:31)
[2024-01-18] MEDS ORDERED: oxyCODONE HCL IR 5 MG TAB (IMMEDIATE RELEASE) PO PRN (16:32)
--- NOTE | 2024-01-18 17:06 | Electrocardiogram Report ---
Test Reason : Blood Pressure : / mmHG Vent. Rate : 073 BPM Atrial Rate : 073 BPM P-R Int : 148 ms QRS Dur : 084 ms QT Int : 380 ms P-R-T Axes : 060 001 067 degrees QTc Int : 418 ms Normal sinus rhythm Diffuse Minor Nonspecific T wave abnormality Abnormal ECG When compared with ECG of 25-FEB-2023 18:34, No significant change Confirmed by Delbert Robles ([id number]) on 01/18/2024 5:05:32 PM Referred By: REFERRED SELF Confirmed By:Delbert Robles
[2024-01-18] MEDS: ACETAMINOPHEN 500 MG TAB PO SCH (17:43)
[2024-01-18] MEDS: HEPARIN SOD (PORCINE) 1000 UNIT/ML IV ONE (17:43)
[2024-01-18] MEDS: HEPARIN SODIUM/DEXTROSE 25,000 UNITS/500 ML BAG IV SCH (17:43)
[2024-01-18] MEDS: INSULIN ASPART PER UNIT CHARGE SC SCH (20:27)
[2024-01-18] MEDS: ATORVASTATIN 40 MG TAB PO SCH (21:00)
[2024-01-19 00:18] LABS: Basophils # (auto) 0.04 K/uL (0.00-0.20); Basophils % (auto) 0.6 %; Eosinophils # (auto) 0.17 K/uL (0.00-0.50); Eosinophils % (auto) 2.5 %; Hematocrit (blood only) 32.8 % (37.0-47.0); Immature Granulocytes # (auto) 0.03 K/uL (0.01-0.20); Immature Granulocytes % (auto) 0.4 %; Lymphocytes # (auto) 2.64 K/uL (1.20-3.40); Lymphocytes % (auto) 38.9 %; Mean Corpuscular Hemoglobin 30.6 pg (25.0-34.0); Mean Corpuscular Hgb Conc 33.5 g/dL (32.0-36.0); Mean Corpuscular Volume 91.4 fL (80.0-100.0); Mean Platelet Volume 10.8 fL (9.4-12.4); Monocytes # (auto) 0.64 K/uL (0.11-0.59); Monocytes % (auto) 9.4 %; Neutrophils # (auto) 3.26 K/uL (1.40-6.50); Neutrophils % (auto) 48.2 %; Platelet Count 242 K/uL (130-400); RDW Coefficient of Variation 15.6 % (11.5-14.5); RDW Standard Deviation 51.4 fL (36.4-46.3); Red Blood Count 3.59 M/uL (4.20-5.40); White Blood Count 6.78 K/ul (4.8-10.8)
[2024-01-19 01:08] LABS: Partial Thromboplastin Ratio 3.8; Prothrombin Time 10.8 Seconds (9.0-12.0)
[2024-01-19 01:10] LABS: ANTI-Xa, UFH(UnfractionatedHep 1.44 IU/ml (0.3-0.7); Partial Thromboplastin Time 103 Seconds (21-31)
[2024-01-19 02:48] LABS: Basophils # (auto) 0.03 K/uL (0.00-0.20); Basophils % (auto) 0.5 %; Eosinophils # (auto) 0.17 K/uL (0.00-0.50); Eosinophils % (auto) 2.6 %; Hematocrit (blood only) 32.9 % (37.0-47.0); Immature Granulocytes # (auto) 0.04 K/uL (0.01-0.20); Immature Granulocytes % (auto) 0.6 %; Lymphocytes % (auto) 43.5 %; Mean Corpuscular Hemoglobin 30.8 pg (25.0-34.0); Mean Corpuscular Hgb Conc 33.4 g/dL (32.0-36.0); Mean Corpuscular Volume 92.2 fL (80.0-100.0); Mean Platelet Volume 10.3 fL (9.4-12.4); Monocytes # (auto) 0.57 K/uL (0.11-0.59); Monocytes % (auto) 8.9 %; Neutrophils # (auto) 2.83 K/uL (1.40-6.50); Neutrophils % (auto) 43.9 %; Platelet Count 231 K/uL (130-400); RDW Coefficient of Variation 15.7 % (11.5-14.5); RDW Standard Deviation 52.9 fL (36.4-46.3); Red Blood Count 3.57 M/uL (4.20-5.40); White Blood Count 6.44 K/ul (4.8-10.8)
[2024-01-19 02:53] LABS: BUN Creatinine Ratio 20.5 (10-20); Calcium 9.2 mg/dl (8.6-10.3); Creatinine Clr Calc Pharmacy 49.4 ml/min; Est GFR (African American) 77.7 ml/min; Est GFR (Non-African American) 67.1 ml/min; Potassium 4.1 mmol/L (3.5-5.1)
[2024-01-19 03:47] LABS: ANTI-Xa, UFH(UnfractionatedHep 0.97 IU/ml (0.3-0.7)
[2024-01-19] MEDS: LEVOTHYROXINE SODIUM 50 MCG TABLET PO SCH (03:50)
[2024-01-19 05:25] LABS: ANTI-Xa, UFH(UnfractionatedHep 0.42 IU/ml (0.3-0.7)
[2024-01-19 07:06] LABS: Estimated Average Glucose 134 mg/dl; Hemoglobin A1C 6.3 % (4.5-5.6)
[2024-01-19] MEDS: oxyCODONE HCL IR 5 MG TAB (IMMEDIATE RELEASE) PO PRN (08:02)
[2024-01-19] MEDS: CYANOCOBALAMIN (B-12) 500 MCG TABLET PO SCH (08:02)
[2024-01-19] MEDS: VENLAFAXINE HCL XR 75 MG CAPXR PO SCH (08:02)
[2024-01-19] MEDS: MAGNESIUM OXIDE 400 MG TAB PO SCH (08:02)
[2024-01-19] MEDS: LORATADINE 10 MG TAB PO SCH (08:03)
[2024-01-19] MEDS: METOPROLOL SUCC 50MG EXT REL TAB PO SCH (08:03)
[2024-01-19] MEDS: FAMOTIDINE 20 MG TAB PO SCH (08:03)
[2024-01-19] MEDS: CHOLECALCIFEROL 25 MCG (1000 UNITS) TAB PO SCH (09:04)
[2024-01-19] MEDS: APIXABAN 5 MG TABLET PO SCH (10:44)
--- NOTE | 2024-01-19 11:54 | Hospitalist Progress Note ---
Date of Service January 19, 2024 Assessment & Plan (1) Pulmonary emboli: Plan: PE Seen on CTA in the setting of trauma with rib fractures US venous doppler did not show any evidence of DVT Initially started on Heparin drrip Transitioned to PO Eliquis 10mg BID for 7 days, then 5mg BID (2) Multiple rib fractures: Plan: Incentive spirometer q1hwa Acetaminophen 1g PO TID Oxycodone 2.5-5mg PO q4h PRN for breakthrough pain No surgical needs (3) Diabetes mellitus type II, controlled: Plan: Hemoglobin A1C 6.2 in May, repeat with AM labs Hold metformin due to contrast Novolog: --Goal BSG Range: Low 110 mg/dL, High 140 mg/dL --Correction Factor: 50 mg/dL/unit No carb ratio --BSGs ACHS if eating, q6h if npo (4) Depression: Plan: Continue venlafaxine (5) Hypothyroidism: Plan: TSH 0.188 in August - reduced from 75 -> 50 mcg PO following this result, continue 50 mcg Repeat unlikely to be admissions representative at this time - follow uip as outpatient Plan VTE Prophylaxis - hopefully discharge tomorrow Diet - T2DM Disposition - observation on med/tele Admission and Anticipated Discharge Date Admission Date: January 18, 2024 Subjective patient seen and examined, in good spirits, rib pain is under good control, denies sob Review of Systems Review of Systems: All systems reviewed are negative, apart from the ones contained in the history. Physical Exam Physical Exam: The patient is awake, alert and oriented 3, well developed and well nourished, normocephalic and atraumatic, lying in bed and in no acute distress. HEENT--PERRL, EOMI, mucous membranes and oropharynx mildly dry Neck--supple. No JVD. No bruits. Thyroid normal, trachea midline, no adenopathy. Heart--normal S1 and S2. No murmurs, rubs or gallops. Lungs--clear bilaterally, no respiratory distress, no accessory muscle use. Abdomen--normal bowel sounds and soft. Extremities--no cyanosis or clubbing. No edema. Dermatologic--normal skin turgor, normal color, no abnormal lymph nodes, no rash. Neurologic--cranial nerves II through XII grossly intact. Rheumatologic--normal range of motion. Psychiatric--normal affect. Results & Data Results & Data Vital Signs (Past 12 Hours) Vital Signs Temp Pulse Pulse Resp BP BP Pulse Ox 01/19/24 10:32 98.4 F 78 18 134/86 93 01/19/24 07:46 97.7 F 75 18 124/69 95 01/19/24 07:35 68 01/19/24 04:00 98.2 F 72 18 110/72 94 O2 Del Method 01/19/24 10:32 Room Air 01/19/24 07:46 Room Air 01/19/24 07:35 01/19/24 04:00 Room Air PG Care Time/CCT Total # of Minutes Spent Total Time Spent with Patient: Total time spent is greater than 50% in coordination of care (as documented) at patient's floor/unit and/or counseling patient: Coding Level of Care Code 77069 SUB INP/OBS CARE 2/35MIN Diagnoses Pulmonary emboli I26.99 Multiple rib fractures S22.49XA Controlled type 2 diabetes mellitus without complication, without long-term current use of insulin E11.9 Diabetes mellitus fdc insulin use: without terminal carman use Diabetes mellitus complication status: without complication Depression, unspecified depression type F32.A Depression Type: unspecified Acquired hypothyroidism E03.9 Hypothyroidism type: acquired Time Spent (min) 35 (3) Diabetes mellitus type II, controlled Diabetes mellitus terminal carman insulin use: without terminal carman use Diabetes m ellitus complication status: without complication Qualified Code(s): E11.9 - Type 2 diabetes mellitus without complications (4) Depression Depression Type: unspecified Qualified Code(s): F32.A - Depression, unspecified (5) Hypothyroidism Hypothyroidism type: acquired Qualified Code(s): E03.9 - Hypothyroidism, unspecified
[2024-01-20 07:59] LABS: Basophils # (auto) 0.02 K/uL (0.00-0.20); Basophils % (auto) 0.4 %; Eosinophils # (auto) 0.17 K/uL (0.00-0.50); Eosinophils % (auto) 3.5 %; Hematocrit (blood only) 33.1 % (37.0-47.0); Hemoglobin 11.2 g/dl (12.0-16.0); Immature Granulocytes # (auto) 0.02 K/uL (0.01-0.20); Immature Granulocytes % (auto) 0.4 %; Lymphocytes # (auto) 1.76 K/uL (1.20-3.40); Lymphocytes % (auto) 36.4 %; Mean Corpuscular Hemoglobin 30.9 pg (25.0-34.0); Mean Corpuscular Hgb Conc 33.8 g/dL (32.0-36.0); Mean Corpuscular Volume 91.2 fL (80.0-100.0); Mean Platelet Volume 10.2 fL (9.4-12.4); Monocytes # (auto) 0.48 K/uL (0.11-0.59); Monocytes % (auto) 9.9 %; Neutrophils # (auto) 2.38 K/uL (1.40-6.50); Neutrophils % (auto) 49.4 %; Platelet Count 236 K/uL (130-400); RDW Coefficient of Variation 15.6 % (11.5-14.5); RDW Standard Deviation 52.1 fL (36.4-46.3); Red Blood Count 3.63 M/uL (4.20-5.40); White Blood Count 4.83 K/ul (4.8-10.8)
[2024-01-20 09:15] LABS: ANTI-Xa, UFH(UnfractionatedHep > 1.50 IU/ml (0.3-0.7)
--- NOTE | 2024-01-20 12:30 | Discharge Summary ---
Date of Service January 20, 2024 Admission HPI Per Admitting Provider Yoana Shaw is a 78 year old female who presents to the ER with left sided chest pain following a fall yesterday. She slipped and fell onto her left side onto a table and has had left sided chest pain since. She notes having osteopenia but is on treatment for this. No other injuries and she did not hit her head. No chest pain, shortness of breath or dizziness prior to falling. She denies any other injuries following the fall other than her left sided chest pain. Pulmonary emboli was found on CT imaging. She denies a history of DVT or PE. No calf pain. No history of significant bleeds. Principal Diagnosis PE, rib fracture Discharge Exam The patient is awake, alert and oriented 3, well developed and well nourished, normocephalic and atraumatic, lying in bed and in no acute distress. HEENT--PERRL, EOMI, mucous membranes and oropharynx mildly dry Neck--supple. No JVD. No bruits. Thyroid normal, trachea midline, no adenopathy. Heart--normal S1 and S2. No murmurs, rubs or gallops. Lungs--clear bilaterally, no respiratory distress, no accessory muscle use. Abdomen--normal bowel sounds and soft. Extremities--no cyanosis or clubbing. No edema. Dermatologic--normal skin turgor, normal color, no abnormal lymph nodes, no rash. Neurologic--cranial nerves II through XII grossly intact. Rheumatologic--normal range of motion. Psychiatric--normal affect. Discharge Data Allergies Allergy/AdvReac Type Severity Reaction Status Date / Time SEASONAL Allergy Mild Uncoded 11/30/23 13:21 Ordered Studies 01/18/24 12:45 CT abd pelvis IV con only Stat CT chest diagnostic w con Stat 01/18/24 14:49 US venous doppler LE Routine Hospital Course (1) Pulmonary emboli: PE Seen on CTA in the setting of trauma with rib fractures US venous doppler did not show any evidence of DVT Initially started on Heparin drrip Transitioned to PO Eliquis 10mg BID for 7 days, then 5mg BID (2) Multiple rib fractures: Incentive spirometer q1hwa Acetaminophen 1g PO TID Oxycodone 2.5-5mg PO q4h PRN for breakthrough pain No surgical needs (3) Diabetes mellitus type II, controlled: Hemoglobin A1C 6.2 in May, repeat with AM labs Hold metformin due to contrast Novolog: --Goal BSG Range: Low 110 mg/dL, High 140 mg/dL --Correction Factor: 50 mg/dL/unit No carb ratio --BSGs ACHS if eating, q6h if npo (4) Depression: Continue venlafaxine (5) Hypothyroidism: TSH 0.188 in August - reduced from 75 -> 50 mcg PO following this result, continue 50 mcg 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 - follow uip as outpatient Plan VTE Prophylaxis - hopefully discharge tomorrow Diet - T2DM Disposition - observation on med/tele Total Time Total Time Spent Total Time Spent (In Minutes): 35 Discharge Plan Discharge Items Patient Disposition: Home - Self-Care Reason For Visit: RIB FRACTURE, PULMONARY EMBOLUS Discharge Diagnosis: PE, rib fracture Activity: Resume your previous activity Non-emergency contact: Primary Care Provider Call non-emergency contact if: you have any medication questions Follow-up/Referrals: Colton Cool MD [Primary Care Provider] - 01/27/24 2:00 pm Diet: Regular Addtl Attending Provider Instructions: please make appointment to follow up with your PCP Pending Studies at Discharge: No Stand-Alone Forms: My [facility] [employer], Smoking Cessation Medications and DC Order Prescriptions: New Eliquis 5 mg (74 tabs) tablets,dose pack 5 mg PO BID Qty: 74 0RF Rx Instructions: Please take 10mg Twice daily for 6 days, then 5mg twice daily ibuprofen 400 mg tablet 400 mg PO Q6H PRN (Reason: pain) Qty: 20 0RF Continued magnesium 250 mg tablet 250 mg PO DAILY Rx Instructions: Unable to verify OTC meds at this date/time levothyroxine 50 mcg tablet 50 mcg PO DAILY Qty: 90 3RF metoprolol succinate 50 mg tablet extended release 24 hr 50 mg PO DAILY Qty: 30 11RF metformin 500 mg tablet extended release 24 hr 500 mg PO BID Qty: 180 3RF atorvastatin 40 mg tablet 40 mg PO HS Qty: 90 3RF loratadine 10 mg tablet 10 mg PO QAM Rx Instructions: Unable to verify OTC meds at this date/time venlafaxine 225 mg tablet extended release 24hr 225 mg PO DAILY Qty: 30 5RF wheat dextrin 3 gram/3.5 gram powder in packet 1 packet PO BID Patient Comments: 1 packet PO as directed ; Rx Instructions: Unable to verify OTC meds at this date/time alendronate 35 mg tablet 35 mg PO WK Qty: 12 3RF Rx Instructions: 35 mg orally once weekly; cholecalciferol (vitamin D3) 50 mcg (2,000 unit) capsule 50 mcg PO DAILY Qty: 30 0RF Rx Instructions: Unable to verify OTC meds at this date/time mecobalamin (vitamin B12) 1,000 mcg tablet,chewable 1,000 mcg PO DAILY Qty: 30 0RF Rx Instructions: Unable to verify OTC meds at this date/time famotidine 20 mg tablet 20 mg PO QAM Rx Instructions: Unable to verify OTC meds at this date/time Discharge Orders: Discharge Order (Routine); Ordered 01/20/24 Ordered By: Memo Rich/Other Patient Handouts: Managing Type 2 Diabetes, Rib Fracture (Broken Rib), Pulmonary Embolism Dc, Exercises to Prevent Falls Admission Data Admit Date/Time: 01/18/24 14:56 Attending Provider: Memo Barraza Admit Provider: Charli Carlson Primary Care Provider: Colton Cool Other Interventions: Discharge Summary Assessment (RN) Last Done: 01/20/24 10:59 Coding Level of Care Code 83545 INP/OBS DISCH >30 MIN Diagnoses Pulmonary emboli I26.99 Multiple rib fractures S22.49XA Controlled type 2 diabetes mellitus without complication, without long-term current use of insulin E11.9 Diabetes mellitus senior living insulin use: without termite inspector use Diabetes mellitus complication status: without complication Depression, unspecified depression type F32.A Depression Type: unspecified Acquired hypothyroidism E03.9 Hypothyroidism type: acquired Time Spent (min) 35
== END 2024-01-20 11:50 | disposition home or self-care (01) ==
LOC: 2W 12:22 → ED 12:22 → SUATTDRO 14:56 → 2W 15:40